=== PATIENT | male | born 1990 ===

== ENCOUNTER 2019-08-23 19:28 | Emergency (ER) | payer SELFPAY ==
[2019-08-23] MEDS ORDERED: ASPIRIN 81 MG TABLET, CHEWABLE PO ONE (19:42)
--- NOTE | 2019-08-23 19:43 | ER Document Report ---
ED Medical Screen (RME) - General Chief Complaint: Chest Pain Stated Complaint: NUMBNESS IN ARMS,HANDS,FINGERS Time Seen by Provider: 08/23/19 19:30 Mode of Arrival: Ambulatory Information source: Patient Notes: Patient presents with multiple complaints. Patient complains of bilateral hand and wrist pain and numbness that will wake him up at night. Patient states she has had this pain for the past 2 weeks. Patient also reports cough and chest pain for the past week. Patient is concerned he may have bronchitis. Patient also complains of itching to the genitalia. Patient reeks of marijuana. I have greeted and performed a rapid initial assessment of this patient. A comprehensive ED assessment and evaluation of the patient, analysis of test results and completion of the medical decision making process will be conducted by additional ED providers. Physical Exam - Respiratory Respiratory status: No respiratory distress Chest status: Tender Breath sounds: Normal Chest palpation: Tender
--- NOTE | 2019-08-23 20:28 | RADIOLOGY REPORT (SQ) ---
EXAM DESCRIPTION: XR CHEST 2 VIEWS COMPLETED DATE/TME: 08/23/2019 19:42 CLINICAL HISTORY: 29 years Male cough, cp COMPARISON: None. FINDINGS: The cardiomediastinal silhouette appears unremarkable. No consolidating infiltrates or pleural effusions. Subtle increased density in the right lung base which could reflect area of developing infiltrate. No pneumothorax. IMPRESSION: Subtle area of increased density in the right lung base which could reflect area of developing infiltrate.
[2019-08-23 20:34] LABS: ABSOLUTE BASOPHILS # (AUTO) 0.1 10^3/uL (0.0-0.2); ABSOLUTE EOSINOPHILS # (AUTO) 0.2 10^3/uL (0.0-0.6); ABSOLUTE LYMPHOCYTES (AUTO) 2.6 10^3/uL (0.5-4.7); ABSOLUTE MONOCYTES (AUTO) 0.6 10^3/uL (0.1-1.4); ABSOLUTE NEUT (AUTO) 3.8 10^3/uL (1.7-8.2); BASOPHILS % (AUTO) 1.9 % (0-2); EOSINOPHILS % (AUTO) 2.7 % (0-6); HEMATOCRIT 40.7 % (37.9-51.0); HEMOGLOBIN 13.5 g/dL (13.5-17.0); LYMPHOCYTES % (AUTO) 35.6 % (13-45); MEAN CORPUSCULAR HEMOGLOBIN 27.2 pg (27.0-33.4); MEAN CORPUSCULAR HGB CONC 33.2 g/dL (32.0-36.0); MEAN CORPUSCULAR VOLUME 82 fl (80-97); MONOCYTES % (AUTO) 8.7 % (3-13); PLATELET COUNT 226 10^3/uL (150-450); RED BLOOD COUNT 4.97 10^6/uL (4.35-5.55); RED CELL DISTRIBUTION WIDTH 13.9 % (11.5-14.0); SEGMENTED NEUTROPHILS % (AUTO) 51.1 % (42-78); TOTAL CELLS COUNTED % (AUTO) 100 %; WHITE BLOOD COUNT 7.4 10^3/uL (4.0-10.5)
[2019-08-23 20:55] LABS: APPEARANCE,URINE CLEAR; BILIRUBIN,URINE NEGATIVE (NEGATIVE); COLOR,URINE YELLOW; GLUCOSE, URINE NEGATIVE (NEGATIVE); KETONES,URINE NEGATIVE (NEGATIVE); LEUKOCYTE ESTERASE,URINE NEGATIVE (NEGATIVE); NITRITE,URINE NEGATIVE (NEGATIVE); PROTEIN,URINE NEGATIVE (NEGATIVE); URINE SPECIFIC GRAVITY 1.025; UROBILINOGEN,URINE NEGATIVE mg/dL (<2.0)
[2019-08-23 20:56] LABS: ANION GAP 11 (5-19); BLOOD UREA NITROGEN 19 mg/dL (7-20); CALCIUM 9.6 mg/dL (8.4-10.2); CARBON DIOXIDE 23 mmol/L (22-30); CHLORIDE 110 mmol/L (98-107); GLUCOSE 80 mg/dL (75-110); POTASSIUM 4.2 mmol/L (3.6-5.0)
[2019-08-23 22:25] LABS: CHLAM PCR NOT DETECTED (NOT DETECT)
--- NOTE | 2019-08-23 23:34 | ER Document Report ---
ED General - General Chief Complaint: Productive Cough Stated Complaint: NUMBNESS IN ARMS,HANDS,FINGERS Time Seen by Provider: 08/23/19 19:30 Mode of Arrival: Ambulatory Notes: 29-year-old male presents emergency department with 3 separate complaints. First complaints he feels like he is having a bronchitis failure after scraping a bunch of floors yesterday. States he has been having a productive cough for the past 2 days but denies any fevers, shortness of breath or chest pain. Second complaint is that his groin has been itching for the past 2 weeks. States he has not noticed any skin changes or any penile discharge. No new sexual partners. States he was tested for "[facility]" at the [facility] and was told it was all -2 weeks ago. Final complaint is that he wakes up in the middle of the night with significant pain in his hands and his hands feel completely numb, he is unable to determine if it specific fingers or just his whole hand. States that when he wakes them up and stretches them out and shakes them they feel better. 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 - Related Data Allergies/Adverse Reactions: No Known Allergies Allergy (Unverified 08/23/19 19:53) Past Medical History - General Information source: Patient - Social History Smoking Status: Current Every Day Smoker - Denies smoking to me. Admits smoking to the nurse. Chew tobacco use (# tins/day): No Frequency of alcohol use: None Drug Abuse: Marijuana Family History: Reviewed & Not Pertinent Patient has suicidal ideation: No Patient has homicidal ideation: No Review of Systems - Review of Systems Constitutional: No symptoms reported Cardiovascular: No symptoms reported Respiratory: See HPI Gastrointestinal: No symptoms reported Male Genitourinary: See HPI Musculoskeletal: See HPI Skin: See HPI Neurological/Psychological: See HPI -: Yes All other systems reviewed and negative Physical Exam - Vital signs Vitals: Temp Pulse Resp BP Pulse Ox 98.3 F 68 20 104/60 97 08/23/19 19:40 08/23/19 19:40 08/23/19 19:40 08/23/19 19:40 08/23/19 19:40 Interpretation: Normal - Notes Notes: GENERAL: Alert, interacts well. No acute distress. HEAD: Normocephalic, atraumatic EYES: Pupils equal, round and reactive to light, extraocular movements intact. ENT: Oral mucosa moist, tongue midline. NECK: Full range of motion, supple, trachea midline. LUNGS: Clear to auscultation bilaterally, no wheezes, rales or rhonchi, no respiratory distress. Wet cough. HEART: Regular rate and rhythm, no murmurs, gallops, rubs. ABDOMEN: Soft, nontender, nondistended, bowel sounds present in all 4 quadrants. EXTREMITIES: Moves all 4 extremities spontaneously, no edema, radial and dorsalis pedis pulses 2/4 bilaterally. No cyanosis. NEUROLOGICAL: Alert and oriented x3, normal speech, positive Tinel's and Phalen's test bilateral wrists. PSYCH: Normal mood, normal affect. SKIN: Warm, Dry, normal turgor, intertrigo of the bilateral groins, no vesicles noted, no evidence of herpes, no penile discharge. Course - Re-evaluation Re-evalutation: 08/23/19 23:34 Chest x-ray shows early right lower lobe pneumonia, he will be started on antibiotics, CBC unremarkable, BMP grossly unremarkable, urinalysis unremarkable, gonorrhea and chlamydia negative, EKG is nonischemic, patient will be treated for pneumonia with antibiotics. He is physical examination of his groin is consistent with intertrigo/tinea cruris. Patient will be started on antifungals topically for this, patient will be treated for physical exam history consistent with carpal tunnel syndrome bilaterally with stretching exercises and bilateral cock-up splints. Discharged home. - Vital Signs Vital signs: Temp Pulse Resp BP Pulse Ox 98.3 F 68 20 104/60 97 08/23/19 19:40 08/23/19 19:40 08/23/19 19:40 08/23/19 19:40 08/23/19 19:40 - Laboratory Result Diagrams: 08/23/19 20:11 08/23/19 20:11 Laboratory results interpreted by me: 08/23/19 20:11 Chloride 110 H - EKG Interpretation by Me Additional EKG results interpreted by me: 08/23/19 23:34 EKG shows sinus bradycardia at a rate of 55, interventricular conduction delay, left axis deviation, T wave inversions in lead III and aVF, no other T wave inversions, per my interpretation. Discharge - Discharge Clinical Impression: Tinea cruris, Carpal tunnel syndrome on both sides RLL pneumonia Qualifiers: Pneumonia type: due to unspecified organism Qualified Code(s): J18.9 - Pneumonia, unspecified organism Condition: Stable Disposition: HOME, SELF-CARE Additional Instructions: Carpal Tunnel Syndrome Your examination suggests carpal tunnel syndrome. This syndrome is due to pressure on a nerve in the wrist. The pressure may be caused by an old injury, hard work using the wrist, work involving repeated motions of the hand, wrist positions that keep pressure on the joint, or arthritis in the wrist. Typical symptoms are tingling, numbness, and pain in the palm, thumb, index and middle fingers, and one side of the ring finger. Often a splint, ice packs, and antiinflammatory medication make the symptoms go away. If the physician feels that your problem is chronic, you will be referred to a specialist for further care. If symptoms do not go away, carpal tunnel syndrome may require surgery. You should call the doctor if pain increases, if you develop difficulty using the thumb or fingers, or if major swelling occurs. The itching in your urine is from a fungal infection, this is treated by applying topical antifungals twice a day for 2 weeks or until at least 1 week after the lesions have resolved. Pneumonia Your examination indicates that you have pneumonia. This is an infection of the lung tissue, usually caused by bacteria or a virus. Symptoms include cough, fever, shaking chills, chest pain, shortness of breath, and coughing up bloody sputum. Treatment for bacterial pneumonia includes rest, antibiotics for 10 to 14 days, increasing your clear liquid intake, a cool mist humidifier at your bedside, and fever medication. Often, a repeat chest X-ray is performed in a few weeks--even if you feel better--to ascertain whether the infection has completely resolved and no underlying lung problem is present. You should call the physician if you develop persistent vomiting, high fever that does not respond to fever medication, increasing shortness of breath, confusion, or lethargy. Also, failure to improve within two to three days is an indication for re-examination. Prescriptions: Amox Tr/Potassium Clavulanate [Augmentin 875-125 Tablet] 1 tab PO BID 7 Days tablet Ketoconazole 30 gm TP BID #1 cream..g.
[2019-08-24 00:16] VITALS: BP 106/54
--- NOTE | 2019-08-24 23:39 | EKG REPORT ---
SEVERITY:- ABNORMAL ECG - SINUS RHYTHM LEFT AXIS DEVIATION LEFT VENTRICULAR HYPERTROPHY : Confirmed by: Nita Rock 24-Aug-2019 23:39:01
== END 2019-08-24 00:18 | disposition home or self-care (01) ==
LOC: ER 19:28
DX: B35.6 Tinea cruris (principal); G56.03 Carpal tunnel syndrome, bilateral upper limbs; J18.9 Pneumonia, unspecified organism; F17.200 Nicotine dependence, unspecified, uncomplicated
CPT/HCPCS: 93005; 99284; 36415; 85025; 80048; 81001; 87491; 87591; 71046; 93010; L3908 ×2